=== PATIENT | female | born 1980 | race Caucasian/White ===

== ENCOUNTER → 2019-07-30 | Outpatient (REF) | LOC: M LAB LCGH 09:27 | DX: N80.0 Endometriosis of uterus (principal); D25.1 Intramural leiomyoma of uterus; D25.2 Subserosal leiomyoma of uterus ==

== ENCOUNTER → 2019-11-12 | Outpatient (REF) | payer BC | LOC: M LAB LCGH 12:31 | PROVIDERS: ATTEND Surgery | DX: K82.4 Cholesterolosis of gallbladder (principal) ==